=== PATIENT | male | born 1995 | race Caucasian/White ===

== ENCOUNTER 2020-01-30 10:54 | Emergency (ER) | payer SELFPAY ==
[2020-01-30 11:08] VITALS: BP 113/77; PULSE 74; RESP 18; TEMP 36.9; O2SAT 98; BMI 18.3
--- NOTE | 2020-01-30 11:21 | W.ED.ABDPA2 ---
HPI - Abdominal Pain General: Chief Complaint: Abdominal Pain Stated Complaint: ABD PAIN Time Seen by Provider: 01/30/20 11:14 Source: patient Mode of arrival: ambulatory Limitations: no limitations History of Present Illness: HPI narrative: 24-year-old male who has had an appendectomy along with cholecystectomy. Patient states that he ate a big Mac 3 days ago and has had epigastric pain since then. States the pain is been cramping in nature. Patient's had no fever no vomiting. MD elicited complaint: abdominal pain Onset (ago): day(s) Pain Consistency: constant Location: Epigastric Severity: mild Quality: cramping Radiation: none Exacerbating factors: eating Relieving factors: nothing Associated Symptoms: Denies chills, diarrhea, dysuria, fever(s), nausea and vomiting Review of Systems Const: Denies: fever, chills, body aches or change in appetite Eyes: Denies: blurry vision or eye discomfort ENMT: Denies: throat pain or dental pain Card: Denies: chest pain Resp: Denies: shortness of breath GI: Reports: abdominal pain; Denies: nausea, vomiting or diarrhea : Denies: painful urination Musc: Denies: neck pain or back pain Skin/Breast: Denies: rash Neuro: Denies: headache Psych: Denies: depression Lalo/Lymph: Denies: easy bruising All/Imm: Denies: hives PFSH ED PFSH: Social History Smoking and tobacco status: current every day smoker Physical Exam Const: COMMON NORMALS: no apparent distress, oriented x3 and healthy appearing HENMT: COMMON NORMALS: normocephalic and head/scalp atraumatic HEAD & SCALP: normocephalic and atraumatic Eye: COMMON NORMALS: PERRL and EOMs intact bilaterally PUPIL: Yes PERRL Neck/C-Spine: COMMON NORMALS: full ROM and supple Chest: COMMONS NORMALS: inspection of chest normal and palpation of chest normal Resp: COMMON NORMALS: normal respiratory effort, no retractions, no use of accessory muscles and clear to auscultation bilaterally AUSCULTATION: clear to auscultation bilaterally Cardio: COMMON NORMALS: regular rate, regular rhythm and no murmurs RATE: regular rate RHYTHM: regular rhythm GI: COMMON NORMALS: normal to inspection, nondistended, normoactive bowel sounds, soft to palpation, non-tender and no masses PALPATION: Yes soft Extremity: COMMON NORMALS: normal to inspection and full ROM Neuro: COMMON NORMALS: oriented x3, moves all extremities and no focal motor deficits Psych: COMMON NORMALS: mental status grossly normal, thought process normal and cooperative THOUGHT PROCESS: normal thought process Skin: COMMON NORMALS: no rashes or lesions noted and no wounds GENERAL SKIN EXAM: no rashes or lesions noted Course Vital Signs: Vital signs: Vital Signs Temperature 98.5 F 01/30/20 11:08 Pulse Rate 64 01/30/20 12:02 Respiratory Rate 16 01/30/20 12:02 Blood Pressure 95/57 01/30/20 12:02 Pulse Oximetry 100 01/30/20 12:02 MDM - Abdominal Pain MDM Narrative: Medical decision making narrative: Patient presents here with abdominal pain that is likely a gastritis. Patient has no tenderness and no signs of acute surgical abdomen. Patient feels improved after GI cocktail. Patient is stable for discharge and will place on Protonix. He is to follow-up with primary care doctor in 3 to 5 days and return if worsening. Lab Data: Labs: Lab Results 01/30/20 01/30/20 Range/Units 11:35 11:35 WBC 8.3 (4.0-10.0) 10^3/ uL RBC 5.23 (4.1-5.3) 10^6/u L Hgb 15.5 (11.7-16.6) g/dL Hct 47.5 (42.0-52.0) % MCV 90.8 (80-94) fL MCH 29.6 (28.0-34.0) pg MCHC 32.6 (30.0-36.0) g/dL RDW 12.0 L (12.1-15.1) % Plt Count 217 (130-400) 10^3/c mm MPV 11.0 H (7.4-10.4) fL Neut % (Auto) 62.1 % Lymph % (Auto) 25.5 % [place] % (Auto) 9.1 % Eos % (Auto) 2.3 % Baso % (Auto) 0.5 % Neut # (Auto) 5.1 (1.8-7.7) 10^3/u L Lymph # (Auto) 2.1 (0.8-4.8) 10^3/u L [place] # (Auto) 0.8 (0.2-0.9) 10^3/u L Eos # (Auto) 0.2 (0.0-0.8) 10^3/u L Baso # (Auto) 0.0 (0.0-0.1) 10^3/u L Nucleated RBC % (a uto) 0 % Nucleated RBCs # 0.0 /100WBC Sodium 141 (136-145) mmol/L Potassium 3.8 (3.5-5.1) mmol/L Chloride 102 (98-107) mmol/L Carbon Dioxide 28 (22-29) mmol/L Anion Gap 14.8 (5-19) BUN 10 (6-20) mg/dL Creatinine 1.1 (0.7-1.2) mg/dL GFR Calculation 81.6 L (90-130) mL/min Glucose 100 (65-115) mg/dL Calculated Osmolal ity 288 (285-295) mOsm/k g Calcium 9.8 (8.5-10.5) mg/dL Total Bilirubin 1.4 H (0.15-1.2) mg/dL AST 114 H (0-40) U/L ALT 198 H (0-41) U/L Alkaline Phosphata se 94 (40-130) IU/L Total Protein 7.1 (6.6-8.7) g/dL Albumin 4.7 (3.5-5.2) g/dL Globulin 2.4 (1.3-4.6) g/dL Lipase 13 (13-60) U/L Discharge Plan Discharge Patient Disposition: Home, Self-Care Clinical Impression: Abdominal pain Qualifiers: Abdominal location: epigastric Qualified Code(s): R10.13 - Epigastric pain Condition: Stable Prescriptions: New Protonix 40 mg tablet,delayed release (DR/EC) 40 mg PO DAILY 56 Days RF: 0 Discharge Orders: Discharge Order (Routine); Ordered 01/30/20 Ordered By: America Ambrose Referrals: Brad Flannery MD [Primary Care Provider] - Discharge Diet: Advance as tolerated Discharge Activity: Resume usual activity Patient Instructions: Abdominal Pain (ED) Stand Alone Forms: Work/School Release Coding Level of Care Code ED Technical Account Manager for Chg Fwd Exam Comprehensive
[2020-01-30] MEDS: sodium chloride 0.9% 1,000 ML 999 ML IV (11:29)
[2020-01-30] MEDS: ondansetron 2 mg/ML SDV 2 mL 4 MG IVP (11:30)
[2020-01-30] MEDS: lidocaine 2% viscous 15 ML, aluminum-mag hydrox-simethicon 30 ML, sucralfate oral liq 1 GM PO (11:31)
[2020-01-30 12:00] LABS: Basophils % 0.5 %; Eosinophils # 0.2 10^3/uL (0.0-0.8); Eosinophils % 2.3 %; Hematocrit 47.5 % (42.0-52.0); Hemoglobin 15.5 g/dL (11.7-16.6); Lymphocytes # 2.1 10^3/uL (0.8-4.8); Lymphocytes % 25.5 %; Mean Corpuscular HGB Conc 32.6 g/dL (30.0-36.0); Mean Corpuscular Hemoglobin 29.6 pg (28.0-34.0); Mean Corpuscular Volume 90.8 fL (80-94); Monocytes # 0.8 10^3/uL (0.2-0.9); Monocytes % 9.1 %; Neutrophils # 5.1 10^3/uL (1.8-7.7); Neutrophils % 62.1 %; Nucleated Red Blood Cells % 0 %; Platelet Count 217 10^3/cmm (130-400); Red Blood Count 5.23 10^6/uL (4.1-5.3); White Blood Count 8.3 10^3/uL (4.0-10.0)
[2020-01-30 12:02] VITALS: BP 95/57; PULSE 64; RESP 16; O2SAT 100
[2020-01-30 12:23] LABS: Alanine Aminotransferase 198 U/L (0-41); Albumin Level 4.7 g/dL (3.5-5.2); Alkaline Phosphatase 94 IU/L (40-130); Anion Gap 14.8 (5-19); Aspartate Amino Transferase 114 U/L (0-40); Blood Urea Nitrogen 10 mg/dL (6-20); Calcium 9.8 mg/dL (8.5-10.5); Carbon Dioxide 28 mmol/L (22-29); Chloride 102 mmol/L (98-107); Globulin 2.4 g/dL (1.3-4.6); Glomerular Filtration Rate 81.6 mL/min (90-130); Glucose 100 mg/dL (65-115); Lipase 13 U/L (13-60); Osmolality Calculated 288 mOsm/kg (285-295); Potassium 3.8 mmol/L (3.5-5.1); Sodium 141 mmol/L (136-145); Total Bilirubin 1.4 mg/dL (0.15-1.2); Total Protein 7.1 g/dL (6.6-8.7)
[2020-01-30 12:34] VITALS: BP 107/68; PULSE 67; RESP 18; O2SAT 100
== END 2020-01-30 12:34 | disposition home or self-care (01) ==
PROVIDERS: Emergency Provider Emergency Medicine; Family Provider Family Medicine; PCP Family Medicine
DX: R10.13 Epigastric pain (principal); F17.210 Nicotine dependence, cigarettes, uncomplicated
CPT/HCPCS: 12345; 80053; 83690; 85025; 96360; 96361; 96374; 96375; 99282; 99283; J2405; J7030

== ENCOUNTER 2020-04-07 08:05 | Emergency (ER) | payer SELFPAY ==
[2020-04-07 08:08] VITALS: BMI 18.0
[2020-04-07 08:12] VITALS: BP 120/87; PULSE 55; RESP 16; TEMP 36.7; O2SAT 97
--- NOTE | 2020-04-07 08:18 | W.ED.DENTAL ---
HPI - Dental/Oral General: Chief complaint: Dental/Oral Stated complaint: jaw pain Time Seen by Provider: 04/07/20 08:07 Source: patient Mode of arrival: ambulatory Limitations: no limitations History of Present Illness: HPI Narrative: Patient is a 25-year-old male who presents to ED today with a complaint of right-sided jaw pain over the past 4 days. Patient tells me he had a tooth on that side that recently had a filling and the filling fell out. Patient states over the past several weeks he has noticed when he chews on that right side he will experience pain. He states he became concerned over the past 4 days when he began having pain even when he was not eating. He has not noticed any swelling, drainage, redness, warmth to the area. He does admit to continued dental pain. Associated symptoms: Denies ear or mastoid pain, fever(s) or odynophagia Review of Systems Const: Denies: fever(s) or chills Eyes: Denies: change in vision, blurry vision, photophobia, floaters or seeing flashes ENMT: Reports: dental pain and other (R jaw pain ); Denies: throat pain, odynophagia, swelling of lips/tongue, oral sores, bleeding gums, ear or mastoid pain, change in hearing, nasal discharge, nasal congestion, epistaxis or sinus pain Card: Denies: chest pain Resp: Denies: dyspnea GI: Denies: nausea or vomiting Musc: Denies: neck pain Skin/Breast: Denies: rash Neuro: Denies: headache(s) PFS ED PFSH: Social History Smoking and tobacco status: current every day smoker Physical Exam Const: COMMON NORMALS: no acute distress, average body habitus, patient oriented x3, no limitations, healthy appearing, alert and well nourished HENMT: COMMON NORMALS: normocephalic, atraumatic, hearing grossly normal bilaterally, external ears normal, EAC's normal, TM's normal bilaterally, Normal external nose present, Normal nasal mucous membranes and turbinates present, moist oral mucous membranes and oropharynx normal HEAD & SCALP: normal to inspection, normocephalic and atraumatic FACE & SINUS: normal facial exam and sinuses nontender NOSE: Normal external nose present and Normal nasal mucous membranes and turbinates present EXTERNAL EAR: Yes external ears normal EXTERNAL AUDITORY CANAL: EAC's normal TYMPANIC MEMBRANE: TM's normal bilaterally MOUTH: Normal oral and palatal mucosa present, lip normal, tongue normal and other (floor of mouth is soft; no swelling over mandible ) TEETH & GINGIVA: Yes other (extensive dental caries throughout; no abscess) Neck/C-Spine: COMMON NORMALS: full ROM OTHER: no submandibular swelling Neuro: COMMON NORMALS: patient oriented x3 SENSORIUM/ORIENTATION: Yes alert Course Vital Signs: Vital signs: Vital Signs Temperature 98.0 F 04/07/20 08:12 Pulse Rate 57 L 04/07/20 08:27 Respiratory Rate 18 04/07/20 08:27 Blood Pressure 120/87 04/07/20 08:27 Pulse Oximetry 95 04/07/20 08:27 Discharge Plan Discharge Patient Disposition: Home, Self-Care Clinical Impression: Dental caries, Pain, dental Condition: Stable Prescriptions: New penicillin V potassium 500 mg tablet 500 mg PO Q8H 7 Days Qty: 21 RF: 0 Discharge Orders: Discharge Order (Routine); Ordered 04/07/20 Ordered By: Mary Martinez Referrals: Brad Flannery MD [Primary Care Provider] - Patient Instructions: Dental Caries (Cavities), Dental Caries (ED), Toothache (ED) Activity Restrictions/Additional Instructions: As discussed please follow up with a dentist as soon as possible. You may return to the emergency department for worsening pain, facial swelling, difficulty swallowing, fevers, any other concerns you may have. Discharge Date/Time: 04/07/20 08:27 Coding Level of Care Code ED Benefit Director for Carmen Mckeon
[2020-04-07 08:27] VITALS: BP 120/87; PULSE 57; RESP 18; O2SAT 95
== END 2020-04-07 08:27 | disposition home or self-care (01) ==
LOC: ER 08:25
PROVIDERS: Emergency Provider Physician Assistant; Family Provider Family Medicine; PCP Family Medicine
DX: K02.9 Dental caries, unspecified (principal); F17.210 Nicotine dependence, cigarettes, uncomplicated
CPT/HCPCS: 12345; 99281

== ENCOUNTER 2021-01-13 09:55 | Emergency (ER) | payer SELFPAY ==
[2021-01-13 09:59] VITALS: BP 125/73; PULSE 79; RESP 16; TEMP 36.2; O2SAT 100; BMI 18.1
--- NOTE | 2021-01-13 10:46 | W.ED.BACK ---
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 and about half-way up having a heavy load with the lawn more he felt a pop in his back and his back has been hurting since then MD elicited complaint: back pain Pertinent past history: prior back pain Onset (ago): hour(s) Timing: constant Severity: moderate Similar Symptoms Previously: Yes Quality: sharp and aching Location: lumbar spine and right lower back Radiation: buttocks Exacerbating factors: movement, sitting upright and walking Relieving factors: immobilization Context: while lifting and turning/twisting Associated symptoms: Reports no associated symptoms; Deny abdominal pain, chills, fever(s), nausea or vomiting Review of Systems Const: Denies: fever(s), chills or body aches Eyes: Denies: change in vision or blurry vision ENMT: Denies: throat pain or nasal congestion Card: Denies: chest pain or dyspnea on exertion Resp: Denies: dyspnea, productive cough or non-productive cough GI: Denies: abdominal pain, nausea or vomiting : Denies: difficulty urinating Musc: Reports: back pain; Denies: extremity pain Skin/Breast: Denies: rash Neuro: Denies: headache(s) Psych: Denies: anxiety or depression Lalo/Lymph: Denies: easy bruising PFSH ED PFSH: Medical History (Updated 01/13/21 @ 10:44 by JUANCHO Good) Depression Hearing loss in right ear Family History (Updated 07/23/20 @ 08:21 by Domonique Farooq LPN) Other Gout Hypertension Social History (Updated 07/23/20 @ 08:22 by Domonique Farooq LPN) Smoking and tobacco status: current every day smoker cigarettes Packs smoked per day: 0.5 Alcohol intake: current Alcohol intake frequency: holidays/special occasions only Alcohol type: beer Current occupational status: unemployed Physical Exam Const: COMMON NORMALS: no acute distress, average body habitus and patient oriented x3 HENMT: COMMON NORMALS: normocephalic HEAD & SCALP: normal to inspection and normocephalic FACE & SINUS: normal facial exam Eye: COMMON NORMALS: conjunctivae normal GENERAL EYE: appearance normal, both eyes and all related structures CONJUNCTIVA: Yes conjunctivae normal Neck/C-Spine: COMMON NORMALS: no JVD Chest: COMMONS NORMALS: normal inspection of the chest Resp: COMMON NORMALS: normal respiratory effort and clear to auscultation bilaterally AUSCULTATION: clear to auscultation bilaterally Cardio: COMMON NORMALS: no JVD, regular rate and regular rhythm RATE: regular rate RHYTHM: regular rhythm GI: COMMON NORMALS: Normal to inspection, nondistended, normoactive bowel sounds present Back/Pelvis: LUMBAR SPINE/LOWER BACK: Yes paraspinal muscle tenderness, Yes paraspinal muscle spasm and Yes straight leg raise positive right (Bilateral straight leg raise positive) Straight leg raise positive details right: at 30 degrees Neuro: COMMON NORMALS: patient oriented x3 GAIT: Yes Shuffling gait present SENSORY EXAM: Yes extremities (Normal) MOTOR EXAM: 5/5 motor strength present throughout Course Vital Signs: Vital signs: Vital Signs Temperature 97.2 F L 01/13/21 09:59 Pulse Rate 79 01/13/21 09:59 Respiratory Rate 16 01/13/21 09:59 Blood Pressure 125/73 01/13/21 09:59 Pulse Oximetry 100 01/13/21 09:59 Discharge Plan Discharge Patient Disposition: Home Clinical Impression: Strain of lumbar region Qualifiers: Encounter type: initial encounter Qualified Code(s): S39.012A - Strain of muscle, fascia and tendon of lower back, initial encounter Condition: Stable Prescriptions: New cyclobenzaprine 5 mg tablet 5 mg PO TID PRN (Reason: muscle spasm) Qty: 10 RF: 0 prednisone 20 mg tablet 20 mg PO DAILY Qty: 7 RF: 0 tramadol 50 mg tablet 50 mg PO TID PRN (Reason: pain) Qty: 14 RF: 0 No Action sertraline [Zoloft] 50 mg tablet 50 mg PO DAILY Qty: 30 RF: 0 Discharge Orders: Discharge ED (Routine); Ordered 01/13/21 Ordered By: Lobo Gilliam Referrals: Brad Flannery MD [Primary Care Provider] - Discharge Diet: Usual diet Discharge Activity: Increase activity as tolerated Patient Instructions: Lumbar Radiculopathy (ED), Opioid Safety Activity Restrictions/Additional Instructions: Follow-up with medical provider as directed. Take medications as prescribed. Return to the ER or your medical provider if condition worsens. Please read and understand discharge instructions. If any questions ask please. Ice for the first 24 hours. Then apply moist heat. Can follow-up with chiropractor as needed. No lifting over 10 pounds for next 2 to 3 weeks. Coding Level of Care Code ED Diesel Locomotive Firer for Carmen Fwd Exam Comprehensive
[2021-01-13] MEDS: HYDROcodone-acetaminophen 7.5-325 mg Tablet 1 TAB PO (10:51)
[2021-01-13] MEDS: ketorolac 60 mg/2 mL INJ IM (10:52)
[2021-01-13] MEDS: cyclobenzaprine 10 mg Tablet PO (10:52)
[2021-01-13 11:05] VITALS: BP 105/68; PULSE 67; O2SAT 99
== END 2021-01-13 11:06 | disposition home or self-care (01) ==
PROVIDERS: Emergency Provider Nurse Practitioner Family; PCP Family Medicine
DX: S39.012A Strain of muscle, fascia and tendon of lower back, initial encounter (principal); F17.210 Nicotine dependence, cigarettes, uncomplicated; X50.0XXA Overexertion from strenuous movement or load, initial encounter
CPT/HCPCS: 96372; 99283; J1885

== ENCOUNTER 2021-03-18 16:53 | Emergency (ER) | payer SELFPAY ==
[2021-03-18 16:57] VITALS: BP 102/63; PULSE 77; RESP 18; TEMP 36.3; O2SAT 96; BMI 18.1
[2021-03-18 17:14] VITALS: BP 104/64; PULSE 76; RESP 16; O2SAT 98
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
== END 2021-03-18 17:23 | disposition home or self-care (01) ==
PROVIDERS: Emergency Provider Nurse Practitioner Family; PCP Family Medicine
DX: S41.051A Open bite of right shoulder, initial encounter (principal); L08.9 Local infection of the skin and subcutaneous tissue, unspecified; Y04.1XXA Assault by human bite, initial encounter; F17.210 Nicotine dependence, cigarettes, uncomplicated
CPT/HCPCS: 99282

== ENCOUNTER 2021-08-27 13:38 | Emergency (ER) | payer BC, MEDICAID, SELFPAY ==
[2021-08-27 13:46] VITALS: BP 130/80; PULSE 88; RESP 18; TEMP 36.6; O2SAT 98; BMI 43.0
[2021-08-27 14:26] LABS: Basophils % 0.2 %; Eosinophils # 0.1 10^3/uL (0.0-0.8); Eosinophils % 0.5 %; Hematocrit 43.1 % (42.0-52.0); Hemoglobin 14.7 g/dL (11.7-16.6); Lymphocytes # 2.1 10^3/uL (0.8-4.8); Lymphocytes % 15.9 %; Mean Corpuscular HGB Conc 34.1 g/dL (30.0-36.0); Mean Corpuscular Hemoglobin 30.2 pg (28.0-34.0); Mean Corpuscular Volume 88.5 fl (80-94); Mean Platelet Volume 10.8 fL (7.4-10.4); Monocytes % 7.8 %; Neutrophils # 9.84 10^3/uL (1.8-7.7); Neutrophils % 75.3 %; Nucleated Red Blood Cells % 0 %; Platelet Count 205 10^3/cmm (130-400); Red Blood Count 4.87 10^6/uL (4.1-5.3); Red Cell Distribution Width 12.2 % (12.1-15.1); White Blood Count 13.1 10^3/uL (4.0-10.0)
[2021-08-27 15:02] LABS: Alanine Aminotransferase 9 U/L (0-41); Albumin Level 4.5 g/dL (3.5-5.2); Alkaline Phosphatase 75 IU/L (40-130); Anion Gap 14.5 (5-19); Aspartate Amino Transferase 13 U/L (0-40); Blood Urea Nitrogen 7 mg/dL (6-20); Calcium 9.2 mg/dL (8.5-10.5); Carbon Dioxide 25 mmol/L (22-29); Chloride 103 mmol/L (98-107); Globulin 2.3 g/dL (1.3-4.6); Glomerular Filtration Rate 101.2 mL/min (90-130); Glucose 100 mg/dL (65-115); Lipase 15 U/L (13-60); Osmolality Calculated 284 mOsm/kg (285-295); Potassium 4.5 mmol/L (3.5-5.1); Sodium 138 mmol/L (136-145); Total Bilirubin 0.9 mg/dL (0.15-1.2); Total Protein 6.8 g/dL (6.6-8.7)
[2021-08-27 15:46] VITALS: BP 107/78; PULSE 60; RESP 18; O2SAT 99
[2021-08-27 15:52] VITALS: RESP 16; O2SAT 99
[2021-08-27] MEDS: morphine 4 mg/mL SDV 1 mL IVP (15:52)
[2021-08-27] MEDS: ondansetron 2 mg/ML SDV 2 mL 4 MG IVP (15:53)
[2021-08-27] MEDS: sodium chloride 0.9% 1,000 ML 999 ML IV (16:02)
[2021-08-27 16:09] LABS: Add Urine Microscopic? NO; Charge for UA Resulting for Rev
[2021-08-27 16:13] LABS: Urine Appearance Clear (CLEAR); Urine Color Yellow (Yellow)
[2021-08-27 16:14] LABS: pH Urine 8 (5-7)
[2021-08-27 16:15] LABS: Bilirubin Urine Neg (Negative); Blood Urine Neg (Negative); Glucose Urine UA Norm (Normal); Ketones Urine Negative (Negative); Leukocyte Esterase Urine Negative (Negative); Nitrate Urine Negative (Negative); Protein Urine Neg (Negative); Sulfosalicylic Acid Urine Negative (Negative); Urobilinogen Urine Norm (Negative)
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
[2021-08-27 17:42] VITALS: BP 107/78; PULSE 76
--- NOTE | 2021-08-30 13:47 | DCPLANNER ---
manager data had message to schedule a follow up appointment for patient with Dr. Horn. manager data called the office of Dr. Horn, spoke with Dianelys, gave clinic patients information. A follow up appointment was scheduled for Tuesday, September 07, 2021 at 1:[address] Horn. Clinic will call patient with appointment information.
--- NOTE | 2021-09-24 11:04 | DCPLANNER ---
Patient had a follow up appointment scheduled for 09.07.[address] Horn - patient did not attend appointment.
== END 2021-08-27 17:42 | disposition home or self-care (01) ==
PROVIDERS: Physician Assistant; Emergency Provider Family Medicine; PCP Family Medicine
DX: R10.11 Right upper quadrant pain (principal); K92.1 Melena; K52.9 Noninfective gastroenteritis and colitis, unspecified; F17.210 Nicotine dependence, cigarettes, uncomplicated; Z79.891 Long term (current) use of opiate analgesic
CPT/HCPCS: 80053; 81003; 83690; 85025; 96361; 96374; 96375; 99284; J2270; J2405; J7030

== ENCOUNTER 2022-01-28 21:43 | Emergency (ER) | payer BC, MEDICAID, SELFPAY ==
[2022-01-28 21:45] VITALS: BP 129/84; PULSE 115; RESP 22; TEMP 36.1; O2SAT 98; BMI 18.1
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
[2022-01-28] MEDS: LORazepam 0.5 mg Tablet PO (22:06)
[2022-01-28 22:16] VITALS: BP 114/74; PULSE 85; RESP 15; O2SAT 97
[2022-01-28 22:17] VITALS: BP 114/74; PULSE 85; RESP 15; O2SAT 97
== END 2022-01-28 22:15 | disposition home or self-care (01) ==
PROVIDERS: Emergency Provider Nurse Practitioner Family; PCP Family Medicine
DX: F41.8 Other specified anxiety disorders (principal)
CPT/HCPCS: 99283

== ENCOUNTER 2022-02-11 16:49 | Emergency (ER) | payer BC, MEDICAID, SELFPAY ==
[2022-02-11 17:12] VITALS: BP 87/63; PULSE 81; RESP 16; TEMP 37.3; O2SAT 96; BMI 18.1
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
== END 2022-02-11 18:48 | disposition home or self-care (01) ==
PROVIDERS: Emergency Provider Nurse Practitioner Family; PCP Family Medicine
DX: L24.5 Irritant contact dermatitis due to other chemical products (principal)
CPT/HCPCS: 99282

== ENCOUNTER 2022-06-06 12:26 | Emergency (ER) | payer BC, MEDICAID, SELFPAY ==
[2022-06-06 12:51] VITALS: BP 102/55; PULSE 65; RESP 20; TEMP 36.6; O2SAT 96; BMI 18.8
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
[2022-06-06 14:25] VITALS: BP 121/78; PULSE 78; RESP 16; O2SAT 96
[2022-06-06] MEDS: erythromycin Op Oint 1 gm 1 APPLIC EYE-LEFT (14:25)
== END 2022-06-06 14:26 | disposition home or self-care (01) ==
PROVIDERS: Emergency Provider Registered Nurse; PCP Family Medicine
DX: H57.12 Ocular pain, left eye (principal); F17.210 Nicotine dependence, cigarettes, uncomplicated
CPT/HCPCS: 99283

== ENCOUNTER 2023-03-07 15:35 | Emergency (ER) | payer BC, MEDICAID, SELFPAY ==
[2023-03-07 16:37] VITALS: BP 98/70; PULSE 77; RESP 14; TEMP 36.7; O2SAT 97; BMI 18.1
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
[2023-03-07 18:22] VITALS: BP 105/65; BP 112/75; BP 119/80
[2023-03-07] MEDS: hyDROXYzine 25 mg Capsule PO (18:29)
== END 2023-03-07 18:35 | disposition home or self-care (01) ==
PROVIDERS: Emergency Provider Nurse Practitioner Family; PCP Family Medicine
DX: F41.0 Panic disorder [episodic paroxysmal anxiety] (principal)
CPT/HCPCS: 99283

== ENCOUNTER → 2023-09-21 08:37 | Outpatient (BNVA) | payer SELFPAY | PROVIDERS: PCP Family Medicine; Visit Provider Nurse Practitioner Family | DX: R05.9 Cough, unspecified (principal); U07.1 COVID-19 | CPT/HCPCS: 87400; 87426 ==

== ENCOUNTER 2025-06-23 14:38 | Emergency (ER) | payer SELFPAY ==
[2025-06-23 14:42] VITALS: BP 120/70; PULSE 77; RESP 18; O2SAT 98
--- NOTE | 2025-06-23 14:52 | USR_ITS ---
PROCEDURE INFORMATION: Exam: US Scrotum and Artery or Vein of the Abdominal and/or Reproductive Organs, Limited Scrotum Exam date and time: 06/23/2025 3:17 PM Age: 30 years old Clinical indication: Scrotum pain; Additional info: R testicular pain TECHNIQUE: Imaging protocol: Real-time ultrasound of the scrotum. Real-time duplex ultrasound scan of the arterial or venous flow with poon scale, color Doppler flow and spectral waveform analysis with image documentation. Limited Duplex exam focused of the scrotum. Duplex exam was performed to evaluate for torsion and other vascular conditions. COMPARISON: CT abdomen pelvis w con* [id number] 03/24/2019 8:01 PM FINDINGS: Right testicle: The right testicle measures 4.5 x 2.7 x 2.7 cm. No mass. Normal arterial and venous waveforms on Doppler. No torsion. Left testicle: Left testicle measures 4.2 x 2.3 x 2.6 cm. No mass. Normal arterial and venous waveforms on Doppler. No torsion. Epididymides: There is an approximately 9 mm right epididymal head cyst or spermatocele with some internal debris.. Scrotum/soft tissues: Asymmetric prominence of the left-sided pampiniform plexus but not meeting the criteria for a varicocele. However, recorded images did not indicate that Valsalva was performed patient positioning. US/US scrotum [id number] IMPRESSION: 1. Normal testicles. 2. Mildly complicated left epididymal head cyst/spermatocele. 3. Asymmetrically prominent left pampiniform plexus.
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
[2025-06-23 17:21] LABS: Glucose Urine UA Negative (Normal); Nitrate Urine Negative (Negative); Specific Gravity, Urine 1.009 (1.005-1.030)
[2025-06-23 17:22] VITALS: BP 111/79; PULSE 72; O2SAT 99
[2025-06-23 17:24] LABS: Add Urine Microscopic? YES
[2025-06-23] MEDS: orphenadrine 30 mg/mL Inj 2 mL 60 MG IM (18:00)
[2025-06-23 19:59] LABS: Neisseria Gonorrhea NOT DETECTED (Negative)
[2025-06-24 00:12] VITALS: BP 111/70; PULSE 72; O2SAT 97
== END 2025-06-23 19:26 | disposition home or self-care (01) ==
PROVIDERS: Physician Assistant; Emergency Provider Physician Assistant; PCP Family Medicine
DX: N43.41 Spermatocele of epididymis, single (principal)
CPT/HCPCS: 76870; 81001; 87210; 87491; 87591; 96372; 99284; J1885; J2360